=== PATIENT | male | born 1960 | race Caucasian/White ===

== ENCOUNTER 2017-03-04 11:50 | Emergency (ER) | payer BC ==
[~2017-03-04] VITALS: Wt 109.0 kg
[2017-03-04] MEDS ORDERED: DILT240C98 PO (12:11)
[2017-03-04] MEDS ORDERED: RIVA15TA PO (12:11)
[2017-03-04] MEDS ORDERED: NORT10CA3 PO (12:12)
[2017-03-04] MEDS ORDERED: HYDR-906 PO (12:12)
[2017-03-04] MEDS ORDERED: NIT4 SL (12:12)
[2017-03-04] MEDS ORDERED: SIMV10TA PO (12:13)
[2017-03-04] MEDS ORDERED: DIPHENHYDRAMINE 50 MG INJ IV ONE (12:30)
[2017-03-04] MEDS ORDERED: SOD CHLORIDE 0.9% 1,000 ML IV ONE (12:30)
[2017-03-04] MEDS ORDERED: METHYLPREDNISOLONE 125 MG INJ IV ONE (12:30)
--- NOTE | 2017-03-04 12:30 | ERD ---
ER Documentation Chief Complaint Date/Time DATE: 03/04/17 TIME: 12:27 Chief Complaint ALLERGIC REACTION WITH MILD SOB AFTER SELF ADMIN OF EPI PEN. NO STRIDOR HPI Patient is a 56-year-old male who felt something sting him in the back of the right leg prior to coming in. He did not actually see the insect or something that might have stung him. He thinks it might have been a Bee. He immediately used his auto injector of epinephrine. After using the autoinjector he began to feel slightly tight in the chest with shortness of breath. He says his hands feel a little itchy. 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 He denies any hives, swelling of the tongue or lips, drooling, difficulty swallowing. He says he was in his usual state of health prior to feeling this things sticking him on the back of the leg. He says the worst reaction he ever had to a bee sting was actually cardiorespiratory arrest. He says he is not nearly that sick at this time. The remainder of the systems are negative. ROS All systems reviewed and are negative except as per history of present illness. Medications Home Meds Reported Medications Simvastatin* (Zocor*) 10 Mg Tablet, 10 MG PO QHS, #30 TAB 03/04/17 Nortriptyline Hcl* (Pamelor*) 10 Mg Capsule, 10 MG PO HS, CAP 03/04/17 Nitroglycerin* (Nitrostat*) 0.4 Mg Tab.subl, 0.4 MG SL Q5MIN Y for CHEST PAIN, BOTTLE 03/04/17 Hydrocodone/Acetaminophen ([place] 5-325 Tablet) 1 Each Tablet, 1-2 TAB PO Q4H WHILE AWAKE, TAB 03/04/17 Diltiazem Hcl* (Diltiazem XT) 240 Mg Capsule.er, 240 MG PO DAILY, #30 CAP 03/04/17 Rivaroxaban* (Xarelto*) 15 Mg Tablet, 15 MG PO DAILY, TAB 03/04/17 Allergies Allergies: Coded Allergies: Gadolinium-Containing Contrast Medi (Unverified Allergy, Unknown, 03/04/17) atorvastatin (Unverified Allergy, Unknown, 03/04/17) bee venom protein (honey bee) (Unverified Allergy, Unknown, 03/04/17) celecoxib (Unverified Allergy, Unknown, 03/04/17) fludrocortisone (Unverified Allergy, Unknown, 03/04/17) topiramate (Unverified Allergy, Unknown, 03/04/17) FmHx Family History: No coronary disease, No diabetes Physical Exam Vitals Vital Signs Date Time Temp Pulse Resp B/P Pulse Ox O2 Delivery O2 Flow Rate FiO2 03/04/17 12:29 77 20 127/80 99 03/04/17 12:00 98.8 79 20 135/71 99 Physical Exam Const: [] Well-developed well-nourished male sitting on the bed with no evidence for respiratory distress. Able to speak in full sentences and not drooling. Head: Atraumatic normocephalic Eyes: Normal Conjunctiva ENT: Normal External Ears, Nose and Mouth. No evidence for edema of the tongue or lip Neck: Full range of motion..~ No meningismus. Resp: Clear to auscultation bilaterally, no wheezing, tachypnea, or retractions noted Cardio: Regular rate and rhythm, no murmurs not tachycardic Abd: Soft, non tender, non distended. Normal bowel sounds Skin: No petechiae or rashes, no hives Back: No midline or flank tenderness Ext: No cyanosis, or edema Neur: Awake and alert, oriented 3, GCS of 15, nonfocal Psych: Normal Mood and Affect Results 24 hrs Current Medications Medications (Trade) Dose Ordered Sig/Alyx Route PRN Reason Start Time Stop Time Status Last Admin Dose Admin Diphenhydramine HCl (Benadryl) 50 mg ONCE ONCE IV 03/04/17 12:30 03/04/17 12:31 DC 03/04/17 12:26 Methylprednisolone Sodium Succinate 125 mg 125 mg ONCE ONCE IV 03/04/17 12:30 03/04/17 12:31 DC 03/04/17 12:26 Sodium Chloride (NS) 1,000 ml @ 1,000 mls/hr Q1H ONCE IV 03/04/17 12:30 03/04/17 13:29 03/04/17 12:26 Procedures/MDM Differential includes but is not limited to allergic reaction, chest tightness secondary to epinephrine injection, anxiety reaction 1324: Patient states that his chest tightness and shortness of breath have completely resolved. He states he feels much better. His lungs are clear to auscultation. His exam is unchanged. He is stable for discharge home. Departure Diagnosis: Primary Impression: Allergic reaction Encounter type: initial encounter Qualified Code: T78.40XA - Allergic reaction, initial encounter Condition: Stable Patient Instructions: First Aid: Allergic Reactions Additional Instructions: Please take the prednisone and Benadryl as prescribed. If you have another allergic reaction please use the auto injector as you used today and report to the closest emergency department for evaluation. ELENITA CHEW March 04, 2017 12:30
[2017-03-04] MEDS ORDERED: PRED20TA PO (13:26)
[2017-03-04] MEDS ORDERED: BEN50 PO (13:27)
[2017-03-04] MEDS ORDERED: EPIN0.3P4 INJ (13:27)
[2017-03-04 13:30] VITALS: BP 133/71; PULSE 72; RESP 20
== END 2017-03-04 14:05 | disposition home or self-care (01) ==
LOC: E/R 11:50
DX: R06.02 Shortness of breath (principal)
CPT/HCPCS: 96374; 96375; 99284; J1200; J2930; J7030